=== PATIENT | male | born 1985 | race Caucasian/White ===

== ENCOUNTER 2024-06-02 19:43 | Emergency (ER) | payer OTHER ==
[2024-06-02] MEDS: Diphtheria,Pertussis(Acell),Tetanus Vaccine 0.5 ML Syringe IM ONE (20:17)
== END 2024-06-02 20:26 | disposition home or self-care (01) ==
LOC: MW.ED 19:43 → EDBD 19:43 → MW.ED 20:26
DX: S61.211A Laceration without foreign body of left index finger without damage to nail, initial encounter (principal); Z23 Encounter for immunization; W26.0XXA Contact with knife, initial encounter
CPT/HCPCS: 90471; 90715; 99282; 99282-25